=== PATIENT | male | born 1950 | race Caucasian/White ===

== ENCOUNTER 2023-10-17 16:48 | Emergency (ER) | payer OTHER ==
[~2023-10-17] VITALS: Ht 165.1 cm; Wt 65.0 kg
[2023-10-17] MEDS ORDERED: HYDR-3965 PO (18:06)
[2023-10-17 18:21] VITALS: BP 138/68; PULSE 72; RESP 16; TEMP 98.6; O2SAT 98
[2023-10-17] MEDS: HYDROcodone/acetaminophen 5mg/325mg tablet PO ONE (18:44)
== END 2023-10-17 18:53 | disposition home or self-care (01) ==
LOC: ER 16:49
DX: S22.42XA Multiple fractures of ribs, left side, initial encounter for closed fracture (principal); W19.XXXA Unspecified fall, initial encounter; Y93.89 Activity, other specified; Y92.89 Other specified places as the place of occurrence of the external cause; Y99.8 Other external cause status
CPT/HCPCS: 71100; 99283